=== PATIENT | male | born 1935 | race Caucasian/White ===

== ENCOUNTER → 2016-11-04 | Outpatient (CLI) | payer OTHER ==
--- NOTE | 2016-11-04 13:52 | RAD ---
Ultrasound kidney 11/04/2016 Indication: Urine retention. Comparison: None. Findings: Right kidney measures up to 9.5 cm in length without collecting system dilatation, abnormal perinephric fluid collection or suspicious contour deforming mass. Left kidney measures up to 10.5 cm in length without collecting system dilatation, abnormal perinephric fluid collection or suspicious contour deforming mass. There is moderate circumferential urinary bladder wall thickening and a small posterior urinary bladder diverticulum. There is prostate protrusion into the posterior urinary bladder wall. Impression: 1. Both kidneys present without hydronephrosis. 2. Urinary bladder wall thickening likely due to prostate enlargement and chronic partial flow compromise. Correlation with PSA is recommended.
== END | disposition home or self-care (01) ==
LOC: US 08:49
PROVIDERS: ATTEND Urology
DX: N35.011 Post-traumatic bulbous urethral stricture (principal); R33.8 Other retention of urine
CPT/HCPCS: 76770